=== PATIENT | female | born 1935 | race Hispanic/Latino ===

== ENCOUNTER 2018-08-25 14:20 | Inpatient (IN) | payer OTHER, MEDICARE ==
[~2018-08-25] VITALS: Ht 149.9 cm; Wt 78.0 kg
[~2018-08-25 14:20] MED LIST: ALLO100T PO; AMLO5TAB9 PO; DOCU-132 PO; FERR325T22 PO; FOLI1TAB15 PO; FURO40TA5 PO; GABA-529 PO; HYDR-4154 PO; LEVO88TA7 PO; METO-391 PO; TRAV2.5D OU
[2018-08-25 16:14] LABS: BASOPHILS % (AUTO) 0.7 % (0.0-5.0); EOSINOPHILS % (AUTO) 4.7 % (0.0-8.0); HEMATOCRIT 27.4 % (36-48); LYMPHOCYTES % (AUTO) 8.9 % (21.0-51.0); MEAN CORPUSCULAR HEMOGLOBIN 29.8 pg (27.0-33.0); MEAN CORPUSCULAR HGB CONC 31.5 g/dL (32.0-36.0); MEAN CORPUSCULAR VOLUME 94.4 fL (79-99); MONOCYTES % (AUTO) 6.5 % (3.0-13.0); NEUTROPHILS % (AUTO) 79.2 % (40.0-77.0); NUCLEATED RED BLOOD CELLS 0.2 % (0.0-0.19); PLATELET COUNT (AUTO) 119 K/uL (130-400); RED CELL DISTRIBUTION WIDTH 18.3 % (11.0-15.5); WHITE BLOOD COUNT (AUTO) 5.2 K/uL (4.8-10.8)
[2018-08-25 16:50] LABS: ALBUMIN 2.8 g/dL (3.5-5.0); BILIRUBIN,TOTAL 0.3 mg/dL (0.2-1.0); CREATININE 2.7 mg/dL (0.5-1.5); POTASSIUM 5.4 mmol/L (3.5-5.1); TOTAL PROTEIN, SERUM 6.4 g/dL (6.0-8.3)
[2018-08-25] MEDS ORDERED: CALCIUM GLUCONATE 1 GM/10 ML VIAL IV ONE (17:10)
[2018-08-25] MEDS ORDERED: DEXTROSE 50%-WATER 50 ML DISP.SYRIN IV ONE (17:11)
[2018-08-25 17:12] LABS: APPEARANCE,URINE Cloudy (CLEAR); BILIRUBIN,URINE Negative (NEGATIVE); COLOR,URINE Yellow (YELLOW); GLUCOSE, URINE (UA) Negative (NEGATIVE); KETONES,URINE Negative (NEGATIVE); LEUKOCYTE ESTERASE ,URINE Large (NEGATIVE); NITRATE,URINE Negative (NEGATIVE); OCCULT BLOOD,URINE Nonhemolyzed Trace (NEGATIVE); PROTEIN,URINE POS 1+ (NEGATIVE); UROBILINOGEN,URINE 0.2 mg/dL (0.2-1.0)
[2018-08-25] MEDS ORDERED: INSULIN HUMULIN R 100 UNIT/ML 3ML ONE (17:12)
[2018-08-25] MEDS ORDERED: SODIUM BICARB 50MEQ 50ML VIAL ONE (17:12)
[2018-08-25 17:32] LABS: BACTERIA,URINE Few /HPF (None Seen)
[2018-08-25 17:33] LABS: SQUAMOUS EPITHELIAL CELL,UR 0-2 /HPF (0-2)
[2018-08-25] MEDS ORDERED: MORPHINE SULFATE 2 MG/ML 1ML SYG IV PRN (18:00)
[2018-08-25] MEDS ORDERED: BUMETANIDE 0.25 MG/ML 10 ML VIAL IV SCH (18:00)
[2018-08-25] MEDS ORDERED: ACETAMINOPHEN 325 MG TAB PO PRN (18:00)
[2018-08-25] MEDS ORDERED: ONDANSETRON HCL 4 MG/2 ML VIAL IV PRN (18:00)
[2018-08-25] MEDS ORDERED: LACTULOSE 20 GM/30 ML UDCUP PO PRN (18:00)
[2018-08-25] MEDS ORDERED: RENAL DOSE IV SCH (18:45)
[2018-08-25] MEDS ORDERED: BUMETANIDE 0.25 MG/ML 10 ML 40 ML IV SCH (19:00)
[2018-08-25 21:28] LABS: MAGNESIUM 1.7 mg/dL (1.80-2.40); PHOSPHORUS 3.9 mg/dL (2.5-4.9)
[2018-08-25 21:41] LABS: % IRON SATURATION 16.2 % (22-44)
[2018-08-25 21:42] LABS: HEMOGLOBIN A1C 6.7 % (4.0-6.0)
[2018-08-25 21:50] LABS: CREATINE KINASE, TOTAL 78 U/L (21-232); MYOGLOBIN 226 ng/mL (10-92); TROPONIN I < 0.04 ng/mL (0.00-0.06)
[2018-08-25 22:05] VITALS: BP 158/69
[2018-08-26] VITALS (7 sets, daily range): BP systolic 131–166; BP diastolic 56–75
[2018-08-26 02:17] LABS: HEMATOCRIT 28.1 % (36-48); MEAN CORPUSCULAR HEMOGLOBIN 29.3 pg (27.0-33.0); MEAN CORPUSCULAR HGB CONC 30.9 g/dL (32.0-36.0); MEAN CORPUSCULAR VOLUME 94.9 fL (79-99); NUCLEATED RED BLOOD CELLS 0.3 % (0.0-0.19); PLATELET COUNT (AUTO) 120 K/uL (130-400); RED BLOOD CELL COUNT(AUTO) 2.96 MIL/uL (4.00-5.50); WHITE BLOOD COUNT (AUTO) 4.5 K/uL (4.8-10.8)
[2018-08-26 02:28] LABS: CREATININE 2.5 mg/dL (0.5-1.5); MAGNESIUM 1.7 mg/dL (1.80-2.40); PHOSPHORUS 3.8 mg/dL (2.5-4.9); POTASSIUM 4.6 mmol/L (3.5-5.1)
[2018-08-26 02:39] LABS: CREATINE KINASE, TOTAL 73 U/L (21-232); MYOGLOBIN 227 ng/mL (10-92); TROPONIN I < 0.04 ng/mL (0.00-0.06)
[2018-08-26] MEDS: NITROGLYCERIN 1GM/1 INCH PACKET TD SCH ×3 (03:43→18:17)
[2018-08-26] MEDS: MEROPENEM 500 MG VIAL IVP SCH ×3 (03:44→18:18)
[2018-08-26 09:50] LABS: CREATINE KINASE, TOTAL 64 U/L (21-232); MYOGLOBIN 195 ng/mL (10-92); TROPONIN I < 0.04 ng/mL (0.00-0.06)
[2018-08-26] MEDS: ENOXAPARIN SODIUM 30 MG/0.3 ML SQ SCH (10:03)
[2018-08-26] MEDS: PANTOPRAZOLE SODIUM 40 MG TABLET.DR PO SCH (10:03)
[2018-08-26] MEDS ORDERED: BUMETANIDE 0.25 MG/ML 10 ML 40 ML IV SCH ×2 (17:45)
[2018-08-26] MEDS: HYDRALAZINE HCL 20 MG/ML VIAL IV PRN (18:18)
[2018-08-26] MEDS ORDERED: COMPOUND IV MISC 1 EACH IVSOLN MISC PRN (19:00)
[2018-08-26] MEDS: METOPROLOL TARTRATE 25 MG TAB PO SCH (21:00)
[2018-08-26] MEDS ORDERED: DEXTROSE 50%-WATER 50 ML DISP.SYRIN IV PRN (21:00)
[2018-08-26] MEDS ORDERED: MIDODRINE HCL 5 MG TABLET PO SCH (21:00)
[2018-08-26] MEDS ORDERED: GLUCAGON 1MG KIT 1 MG ML IM PRN (21:00)
[2018-08-26] MEDS: INSULIN HUMULIN R 100 UNIT/ML 3ML SQ SCH (21:08)
[2018-08-26] MEDS ORDERED: ALBUMIN (HUMAN) 25% 50 ML IV SCH (22:00)
[2018-08-27] VITALS (7 sets, daily range): BP systolic 147–187; BP diastolic 58–86
[2018-08-27] MEDS: NITROGLYCERIN 1GM/1 INCH PACKET TD SCH ×3 (02:14→20:19)
[2018-08-27 03:52] LABS: MEAN CORPUSCULAR HEMOGLOBIN 29.4 pg (27.0-33.0); MEAN CORPUSCULAR HGB CONC 31.6 g/dL (32.0-36.0); MEAN CORPUSCULAR VOLUME 93.3 fL (79-99); NUCLEATED RED BLOOD CELLS 0.2 % (0.0-0.19); PLATELET COUNT (AUTO) 132 K/uL (130-400); RED CELL DISTRIBUTION WIDTH 18.1 % (11.0-15.5)
[2018-08-27] MEDS: HYDRALAZINE HCL 20 MG/ML VIAL IV PRN ×2 (04:01→22:10)
[2018-08-27 04:15] LABS: % IRON SATURATION 16.8 % (22-44)
[2018-08-27 04:22] LABS: CREATININE 2.2 mg/dL (0.5-1.5); MAGNESIUM 1.5 mg/dL (1.80-2.40); PHOSPHORUS 2.6 mg/dL (2.5-4.9); POTASSIUM 4.2 mmol/L (3.5-5.1); THYROID STIMULATING HORMONE 3.19 uIU/mL (0.36-3.74)
[2018-08-27 04:50] LABS: INR 1.06 (0.85-1.15); PARTIAL THROMBOPLASTIN TIME 25.8 SEC (26.3-35.5); PROTHROMBIN TIME 11.1 SEC (9.6-11.6)
[2018-08-27] MEDS: MEROPENEM 500 MG VIAL IVP SCH (06:13)
[2018-08-27] MEDS: INSULIN HUMULIN R 100 UNIT/ML 3ML SQ SCH ×2 (06:13→21:41)
[2018-08-27] MEDS: METOPROLOL TARTRATE 25 MG TAB PO SCH ×2 (09:04→20:18)
[2018-08-27] MEDS: ACETAMINOPHEN 325 MG TAB PO PRN (09:04)
[2018-08-27] MEDS: ENOXAPARIN SODIUM 30 MG/0.3 ML SQ SCH (09:05)
[2018-08-27] MEDS: PANTOPRAZOLE SODIUM 40 MG TABLET.DR PO SCH (09:05)
[2018-08-27] MEDS: FOLIC ACID/VITAMIN B COMP W-C 1 MG CAPSULE PO SCH (09:05)
[2018-08-27] MEDS: BUMETANIDE 1 MG TAB PO SCH (20:18)
[2018-08-28 03:42] VITALS: BP 165/77
[2018-08-28 04:33] LABS: HEMATOCRIT 28.4 % (36-48); MEAN CORPUSCULAR HGB CONC 32.2 g/dL (32.0-36.0); NUCLEATED RED BLOOD CELLS 0.2 % (0.0-0.19); PLATELET COUNT (AUTO) 140 K/uL (130-400); RED BLOOD CELL COUNT(AUTO) 3.06 MIL/uL (4.00-5.50); RED CELL DISTRIBUTION WIDTH 18.1 % (11.0-15.5); WHITE BLOOD COUNT (AUTO) 5.2 K/uL (4.8-10.8)
[2018-08-28 04:50] LABS: CREATININE 2.2 mg/dL (0.5-1.5); MAGNESIUM 1.3 mg/dL (1.80-2.40); POTASSIUM 4.1 mmol/L (3.5-5.1)
[2018-08-28 04:57] LABS: BAND NEUTROPHILS % (MANUAL) 2 % (0-2); BASOPHILS % (MANUAL) 1 % (0-2); LYMPHOCYTES % (MANUAL) 9 % (22-44); MAN.DIFF COMMENT-IMPRESSION MANUAL DIFFERENTIAL; MONOCYTES % (MANUAL) 6 % (2-9); SEGMENTED NEUTROPHILS % 82 % (40-70)
[2018-08-28 04:59] LABS: PLATELET MORPHOLOGY COMMENT DECREASED
[2018-08-28] MEDS ORDERED: MAGNESIUM 2GM PREMIX 50ML 50 ML IV ONE (06:08)
[2018-08-28] MEDS ORDERED: MAGNESIUM 2GM PREMIX 50ML 50 ML IV PRN ×2 (06:15→14:00)
[2018-08-28] MEDS: HYDRALAZINE HCL 20 MG/ML VIAL IV PRN ×2 (06:31→20:59)
[2018-08-28] MEDS: NITROGLYCERIN 1GM/1 INCH PACKET TD SCH ×3 (06:31→20:59)
[2018-08-28] MEDS: INSULIN HUMULIN R 100 UNIT/ML 3ML SQ SCH ×4 (06:32→21:00)
[2018-08-28 07:00] VITALS: BP 134/58
[2018-08-28] MEDS: BUMETANIDE 1 MG TAB PO SCH ×2 (10:07→20:58)
[2018-08-28] MEDS: PANTOPRAZOLE SODIUM 40 MG TABLET.DR PO SCH (10:08)
[2018-08-28] MEDS: METOPROLOL TARTRATE 25 MG TAB PO SCH ×2 (10:08→20:58)
[2018-08-28] MEDS: FOLIC ACID/VITAMIN B COMP W-C 1 MG CAPSULE PO SCH (10:08)
[2018-08-28] MEDS: ACETAMINOPHEN 325 MG TAB PO PRN (10:09)
[2018-08-28] MEDS: ENOXAPARIN SODIUM 30 MG/0.3 ML SQ SCH (10:10)
[2018-08-28 11:00] VITALS: BP 164/65
[2018-08-28] MEDS ORDERED: FERS325 PO (14:48)
[2018-08-28] MEDS ORDERED: ROSU10TA27 PO (14:48)
[2018-08-28] MEDS ORDERED: TRAV5DRO OU (14:48)
[2018-08-28] MEDS ORDERED: RANI150C4 PO (14:48)
[2018-08-28 16:00] VITALS: BP 174/65
[2018-08-28 19:48] VITALS: BP 177/74
[2018-08-28 23:33] VITALS: BP 149/56
[2018-08-29] VITALS (7 sets, daily range): BP systolic 138–167; BP diastolic 44–62
[2018-08-29] MEDS: HYDRALAZINE HCL 20 MG/ML VIAL IV PRN (03:49)
[2018-08-29 04:34] LABS: CREATININE 2.1 mg/dL (0.5-1.5); MAGNESIUM 1.6 mg/dL (1.80-2.40)
[2018-08-29] MEDS: NITROGLYCERIN 1GM/1 INCH PACKET TD SCH ×3 (04:47→21:05)
[2018-08-29] MEDS: INSULIN HUMULIN R 100 UNIT/ML 3ML SQ SCH ×4 (06:33→21:01)
[2018-08-29] MEDS: BUMETANIDE 1 MG TAB PO SCH ×2 (08:34→21:04)
[2018-08-29] MEDS: METOPROLOL TARTRATE 25 MG TAB PO SCH ×2 (08:34→21:04)
[2018-08-29] MEDS: FOLIC ACID/VITAMIN B COMP W-C 1 MG CAPSULE PO SCH (08:34)
[2018-08-29] MEDS: PANTOPRAZOLE SODIUM 40 MG TABLET.DR PO SCH (08:34)
[2018-08-29] MEDS: ENOXAPARIN SODIUM 30 MG/0.3 ML SQ SCH (12:14)
[2018-08-29] MEDS: BACITRACIN 28.4 GM OINT TP SCH (21:06)
[2018-08-30 03:26] VITALS: BP 168/61
[2018-08-30 03:50] LABS: HEMATOCRIT 27.5 % (36-48); MEAN CORPUSCULAR HEMOGLOBIN 29.9 pg (27.0-33.0); MEAN CORPUSCULAR HGB CONC 32.5 g/dL (32.0-36.0); NUCLEATED RED BLOOD CELLS 0.1 % (0.0-0.19); PLATELET COUNT (AUTO) 129 K/uL (130-400); RED BLOOD CELL COUNT(AUTO) 2.99 MIL/uL (4.00-5.50); RED CELL DISTRIBUTION WIDTH 18.4 % (11.0-15.5); WHITE BLOOD COUNT (AUTO) 6.2 K/uL (4.8-10.8)
[2018-08-30 03:59] LABS: CREATININE 2.1 mg/dL (0.5-1.5); POTASSIUM 3.9 mmol/L (3.5-5.1)
[2018-08-30 04:04] LABS: B-TYPE NATRIURETIC PEPTIDE 1370 pg/mL (0-100)
[2018-08-30] MEDS: NITROGLYCERIN 1GM/1 INCH PACKET TD SCH ×2 (05:55→13:20)
[2018-08-30] MEDS: INSULIN HUMULIN R 100 UNIT/ML 3ML SQ SCH ×3 (07:15→16:30)
[2018-08-30 07:45] VITALS: BP 162/51
[2018-08-30] MEDS: METOPROLOL TARTRATE 25 MG TAB PO SCH (10:14)
[2018-08-30] MEDS: FOLIC ACID/VITAMIN B COMP W-C 1 MG CAPSULE PO SCH (10:14)
[2018-08-30] MEDS: BUMETANIDE 1 MG TAB PO SCH (10:14)
[2018-08-30] MEDS: PANTOPRAZOLE SODIUM 40 MG TABLET.DR PO SCH (10:14)
[2018-08-30] MEDS: BACITRACIN 28.4 GM OINT TP SCH (10:15)
[2018-08-30] MEDS: ENOXAPARIN SODIUM 30 MG/0.3 ML SQ SCH (10:15)
[2018-08-30 11:49] VITALS: BP 161/72
[2018-08-30] MEDS ORDERED: PANT40TA PO (14:50)
[2018-08-30] MEDS ORDERED: BACI30OI6 TP (14:50)
[2018-08-30] MEDS ORDERED: BUME1TAB12 PO (14:50)
[2018-08-30 17:45] VITALS: BP 161/78
== END 2018-08-30 18:30 | disposition hospice, inpatient (51) | DRG 682 ==
LOC: EDH 14:20 → EDHIP 17:57 → 2AH 21:48
PROVIDERS: ADMIT Internal Medicine; ATTEND Internal Medicine
DX: N17.9 Acute kidney failure, unspecified (principal); I50.33 Acute on chronic diastolic (congestive) heart failure; I13.0 Hypertensive heart and chronic kidney disease with heart failure and stage 1 through stage 4 chronic kidney disease, or unspecified chronic kidney disease; N39.0 Urinary tract infection, site not specified; N18.4 Chronic kidney disease, stage 4 (severe); E11.22 Type 2 diabetes mellitus with diabetic chronic kidney disease; R09.89 Other specified symptoms and signs involving the circulatory and respiratory systems; D50.9 Iron deficiency anemia, unspecified; D63.1 Anemia in chronic kidney disease; E11.21 Type 2 diabetes mellitus with diabetic nephropathy; E66.9 Obesity, unspecified; E87.5 Hyperkalemia; I05.0 Rheumatic mitral stenosis; I25.10 Atherosclerotic heart disease of native coronary artery without angina pectoris; I27.20 Pulmonary hypertension, unspecified; R62.7 Adult failure to thrive; R53.81 Other malaise; Z51.5 Encounter for palliative care; Z68.34 Body mass index [BMI] 34.0-34.9, adult; Z88.8 Allergy status to other drugs, medicaments and biological substances; Z90.710 Acquired absence of both cervix and uterus; Z91.15 Patient's noncompliance with renal dialysis; Z82.5 Family history of asthma and other chronic lower respiratory diseases; Z82.49 Family history of ischemic heart disease and other diseases of the circulatory system; Z82.0 Family history of epilepsy and other diseases of the nervous system
CPT/HCPCS: 36415; 71045; 80048; 80053; 80339; 81001; 82550; 82728; 82948; 83036; 83540; 83550; 83735; 83874; 83880; 84100; 84443; 84484; 85025; 85027; 85610; 85730; 93005; 99291; A4218; G0378; J0360; J0610; J1650; J1815; J2185; J3475; J3490; J7070; P9047

== ENCOUNTER 2018-09-15 10:19 | Inpatient (IN) | payer MEDICARE ==
[~2018-09-15] VITALS: Ht 157.5 cm; Wt 80.0 kg
[~2018-09-15 10:19] MED LIST changes: -ALLO100T PO; -AMLO5TAB9 PO; +BACI30OI6 TP; +BUME1TAB12 PO; -FERR325T22 PO; -FOLI1TAB15 PO; -FURO40TA5 PO; -HYDR-4154 PO; -METO-391 PO; +PANT40TA PO; -TRAV2.5D OU; +TRAV5DRO OU
[2018-09-15 10:37] LABS: EOSINOPHILS % (AUTO) 0.6 % (0.0-8.0); HEMATOCRIT 27.7 % (36-48); MEAN CORPUSCULAR HEMOGLOBIN 29.5 pg (27.0-33.0); MEAN CORPUSCULAR HGB CONC 32.5 g/dL (32.0-36.0); MEAN CORPUSCULAR VOLUME 90.8 fL (79-99); NEUTROPHILS % (AUTO) 79.4 % (40.0-77.0); NUCLEATED RED BLOOD CELLS 0.1 % (0.0-0.19); PLATELET COUNT (AUTO) 112 K/uL (130-400); RED BLOOD CELL COUNT(AUTO) 3.05 MIL/uL (4.00-5.50); RED CELL DISTRIBUTION WIDTH 16.7 % (11.0-15.5); WHITE BLOOD COUNT (AUTO) 8.2 K/uL (4.8-10.8)
[2018-09-15 10:52] LABS: INR 1.08 (0.85-1.15); PARTIAL THROMBOPLASTIN TIME 25.9 SEC (26.3-35.5); PROTHROMBIN TIME 11.3 SEC (9.6-11.6)
[2018-09-15 11:05] LABS: ALBUMIN 2.6 g/dL (3.5-5.0); BILIRUBIN,TOTAL 0.3 mg/dL (0.2-1.0); CREATININE 3.2 mg/dL (0.5-1.5); TOTAL PROTEIN, SERUM 6.5 g/dL (6.0-8.3); TROPONIN I 0.54 ng/mL (0.00-0.06)
[2018-09-15 11:06] LABS: APPEARANCE,URINE TURBID (CLEAR); BILIRUBIN,URINE SMALL (NEGATIVE); COLOR,URINE YELLOW (YELLOW); GLUCOSE, URINE (UA) NEGATIVE (NEGATIVE); KETONES,URINE NEGATIVE (NEGATIVE); LEUKOCYTE ESTERASE ,URINE MODERATE (NEGATIVE); NITRATE,URINE NEGATIVE (NEGATIVE); OCCULT BLOOD,URINE LARGE (NEGATIVE); PROTEIN,URINE >=300 (NEGATIVE)
[2018-09-15] MEDS ORDERED: SODIUM CHLORIDE 0.9% 1000ML 1,000 ML IV ONE (11:19)
[2018-09-15] MEDS ORDERED: ZOSYN 3.375GM+NS 50ML 50 ML IV ONE (11:20)
[2018-09-15] MEDS ORDERED: ACETAMINOPHEN EXTRA STRENGTH 500 MG TABLET ONE (11:20)
[2018-09-15] MEDS ORDERED: SODIUM CHLORIDE 0.9% 50 ML IV ONE (11:21)
[2018-09-15 11:35] LABS: BACTERIA,URINE Many /HPF (None Seen); MUCUS,URINE Many LPF (None Seen); SQUAMOUS EPITHELIAL CELL,UR Rare /HPF (0-2); WBC,URINE TNTC /HPF (0-1)
[2018-09-15 11:36] LABS: TRANSITIONAL EPI CELLS,URINE Few /HPF (None Seen)
[2018-09-15] MEDS ORDERED: ACETAMINOPHEN 650 MG SUPPOSITORY RC ONE (12:04)
[2018-09-15] MEDS ORDERED: SODIUM CHLORIDE 0.9% 100 ML IV ONE (12:21)
[2018-09-15] MEDS ORDERED: AMIODARONE HCL 50 MG/ML 3 ML VIAL ONE (12:21)
[2018-09-15] MEDS ORDERED: AMIODARONE HCL 150 MG in DEXTROSE 5%-WATER 100 ML IV SCH (12:25)
[2018-09-15] MEDS ORDERED: AMIODARONE HCL 900 MG in DEXTROSE 5%-WATER 500 ML IV SCH (12:30)
[2018-09-15] MEDS ORDERED: ACETAMINOPHEN 325 MG TAB PO PRN (15:00)
[2018-09-15] MEDS ORDERED: MORPHINE SULFATE 2 MG/ML 1ML SYG IV PRN (15:00)
[2018-09-15] MEDS ORDERED: BUMETANIDE 0.25 MG/ML 10 ML VIAL IV SCH (15:00)
[2018-09-15] MEDS ORDERED: HYDRALAZINE HCL 20 MG/ML VIAL IV PRN (15:00)
[2018-09-15] MEDS ORDERED: ASPIRIN 300 MG SUPPOSITORY PR ONE (15:22)
[2018-09-15 15:26] LABS: ABG BASE EXCESS 0.4 mmol/L (-2.0-3.0); ABG HCO3 27.4 mmol/L (21.0-28.0); ABG OXYGEN SATURATION 77.2 % (95.0-99.0); ABG PCO2 53 mmHg (32-45)
[2018-09-15] MEDS ORDERED: BUMETANIDE 0.25 MG/ML ONE (16:49)
[2018-09-15] MEDS: LINEZOLID 600 MG/ISO-OSM 300 ML IV SCH (16:55)
[2018-09-15] MEDS ORDERED: BUMETANIDE IV SCH (16:58)
[2018-09-15] MEDS ORDERED: SODIUM CHLORIDE 0.9% IV SCH (16:58)
[2018-09-15] MEDS ORDERED: COMPOUND IV MISC 1 EACH IVSOLN MISC PRN (17:00)
--- NOTE | 2018-09-15 17:02 | NUR ---
FLAVIO PERDUE WAS INFORMED TO BRING HOME MEDICATIONS.
[2018-09-15] MEDS: ZOSYN 3.375GM+NS 50ML 50 ML IV SCH (21:00)
[2018-09-15] MEDS: FAMOTIDINE/PF 20 MG/2 ML VIAL IV SCH (21:00)
[2018-09-16] MEDS ORDERED: ZOSYN 3.375GM+NS 50ML 50 ML IV ONE ×2 (00:39→07:17)
[2018-09-16] MEDS ORDERED: SODIUM CHLORIDE 0.9% 50 ML IV ONE ×3 (00:40→07:19)
[2018-09-16] MEDS: LINEZOLID 600 MG/ISO-OSM 300 ML IV SCH ×2 (04:55→16:28)
[2018-09-16] MEDS: ZOSYN 3.375GM+NS 50ML 50 ML IV SCH ×3 (05:00→21:13)
[2018-09-16] MEDS: ENOXAPARIN SODIUM 30 MG/0.3 ML SQ SCH (09:00)
[2018-09-16] MEDS ORDERED: FAMOTIDINE/PF 20 MG/2 ML VIAL IV ONE (10:24)
[2018-09-16] MEDS ORDERED: ENOXAPARIN SODIUM 30 MG/0.3 ML SQ ONE (10:24)
[2018-09-16 14:35] VITALS: BP 92/66
--- NOTE | 2018-09-16 17:18 | NUR ---
TELE UPDATE: AFIB 120'S
[2018-09-16] MEDS ORDERED: LACT10SO9 PO (18:51)
[2018-09-16] MEDS ORDERED: ACET650S14 RC (18:51)
[2018-09-16] MEDS ORDERED: MORP20SY PO (18:51)
[2018-09-16] MEDS ORDERED: MORP20SY SL (18:51)
[2018-09-16] MEDS ORDERED: ALBU2.5V2 IH (18:51)
[2018-09-16] MEDS ORDERED: LORA2ORA5 SL (18:51)
[2018-09-16] MEDS ORDERED: FOLI0.8T22 PO (18:51)
[2018-09-16] MEDS ORDERED: METO25TA6 PO (18:51)
--- NOTE | 2018-09-16 19:30 | NUR ---
AFIB RVR PT COMPLETED AMIODARONE DRIP PER PROTOCOL. CONTINUES AFIB RVR 128. DR. PATEL NOTIFIED. INSTRUCTED TO CONSULT CARDIOLOGY FOR RECOMMENDATIONS. DR. Rayshawn PRICE MD NOTIFIED OF PT CONDITION. CARDIZEM DRIP INITIATED PER PROTOCOL. PT REMAINS ASYMPTOMATIC WITH BP-111/87; AFIB-128.
[2018-09-16 20:06] VITALS: BP 111/87
[2018-09-16] MEDS ORDERED: DILTIAZEM 125MG+100 ML NS 125 ML IV SCH (21:00)
[2018-09-16] MEDS: FAMOTIDINE/PF 20 MG/2 ML VIAL IV SCH (21:13)
[2018-09-16] MEDS ORDERED: DILTIAZEM HCL 5 MG/ML 10 ML VIAL IV ONE (21:45)
[2018-09-17 00:50] VITALS: BP 135/98
[2018-09-17 04:02] VITALS: BP 141/70
[2018-09-17] MEDS: ZOSYN 3.375GM+NS 50ML 50 ML IV SCH ×3 (05:23→22:13)
[2018-09-17 07:15] VITALS: BP 133/111
[2018-09-17 07:49] LABS: BASOPHILS % (AUTO) 0.4 % (0.0-5.0); EOSINOPHILS % (AUTO) 1.8 % (0.0-8.0); HEMATOCRIT 28.6 % (36-48); LYMPHOCYTES % (AUTO) 6.3 % (21.0-51.0); MEAN CORPUSCULAR HEMOGLOBIN 28.9 pg (27.0-33.0); MEAN CORPUSCULAR HGB CONC 31.9 g/dL (32.0-36.0); MEAN CORPUSCULAR VOLUME 90.6 fL (79-99); MONOCYTES % (AUTO) 6.1 % (3.0-13.0); NEUTROPHILS % (AUTO) 85.4 % (40.0-77.0); NUCLEATED RED BLOOD CELLS 0.1 % (0.0-0.19); PLATELET COUNT (AUTO) 128 K/uL (130-400); RED BLOOD CELL COUNT(AUTO) 3.15 MIL/uL (4.00-5.50); RED CELL DISTRIBUTION WIDTH 16.5 % (11.0-15.5); WHITE BLOOD COUNT (AUTO) 8.3 K/uL (4.8-10.8)
--- NOTE | 2018-09-17 07:58 | NUR ---
NO RESUSCITATIVE MEASURE REQUEST FORM IN CHART. ASKED PATIENT ABOUT CODE STATUS AND SHE SAID THAT SHE DOES NOT WANT TO BE DNR. INFORMED LUIS M MONTALVO TRACK OILER. ORDER FOR DNR DISCONTINUED PER PATIENT'S REQUEST.
[2018-09-17] MEDS: ENOXAPARIN SODIUM 30 MG/0.3 ML SQ SCH (08:56)
[2018-09-17] MEDS: LINEZOLID 600 MG/ISO-OSM 300 ML IV SCH ×2 (09:12→16:39)
--- NOTE | 2018-09-17 11:03 | NUR ---
PATIENT CONVERTED TO SINUS RHYTHM REPORTED BY ANABELLE SIDDIQUI
[2018-09-17 11:22] VITALS: BP 131/88
[2018-09-17] MEDS: ACETAMINOPHEN 325 MG TAB PO PRN (11:31)
--- NOTE | 2018-09-17 12:14 | NUR ---
cm note met with patients 3 daughters present, per daughter daniel munoz, state pt came from [facility] and was under [facility] at facility, per daughters present, state they wish for pt to return back to [facility], but do not wish to continue with [facility]. state all daughters are in agreement, choice letter and PIA signed. and states that they wish to [place] back [facility] [place]. call made to [facility] with [facility] and informed of family request to stop hospice. states this pt will need to be referred to [facility] for formal denial before accepting as a medicaid pending. will followup. Addendum: 09/17/18 at 1220 by LEVI DAVILA Amended: Links added.
[2018-09-17 15:46] VITALS: BP 151/50
[2018-09-17] MEDS: INSULIN HUMULIN R 100 UNIT/ML 3ML SQ SCH ×2 (16:35→22:22)
[2018-09-17 19:52] VITALS: BP 145/40
[2018-09-17] MEDS: FAMOTIDINE/PF 20 MG/2 ML VIAL IV SCH (22:17)
[2018-09-18] VITALS (9 sets, daily range): BP systolic 115–199; BP diastolic 35–96
[2018-09-18] MEDS: LINEZOLID 600 MG/ISO-OSM 300 ML IV SCH ×3 (04:17→20:35)
[2018-09-18 05:10] LABS: BASOPHILS % (AUTO) 0.7 % (0.0-5.0); HEMATOCRIT 26.1 % (36-48); LYMPHOCYTES % (AUTO) 8.4 % (21.0-51.0); MEAN CORPUSCULAR HEMOGLOBIN 29.1 pg (27.0-33.0); MEAN CORPUSCULAR HGB CONC 32.3 g/dL (32.0-36.0); MEAN CORPUSCULAR VOLUME 90.1 fL (79-99); MONOCYTES % (AUTO) 7.7 % (3.0-13.0); NEUTROPHILS % (AUTO) 79.2 % (40.0-77.0); NUCLEATED RED BLOOD CELLS 0.3 % (0.0-0.19); PLATELET COUNT (AUTO) 139 K/uL (130-400); RED CELL DISTRIBUTION WIDTH 16.6 % (11.0-15.5); WHITE BLOOD COUNT (AUTO) 7.5 K/uL (4.8-10.8)
[2018-09-18 05:27] LABS: CREATININE 3.8 mg/dL (0.5-1.5); POTASSIUM 3.7 mmol/L (3.5-5.1)
[2018-09-18] MEDS: ZOSYN 3.375GM+NS 50ML 50 ML IV SCH ×3 (05:29→22:38)
[2018-09-18] MEDS: INSULIN HUMULIN R 100 UNIT/ML 3ML SQ SCH ×4 (06:07→20:41)
--- NOTE | 2018-09-18 08:00 | NUR ---
AM ASSESSMENT PT LAYING IN BED, HOB ELEVATED 30 DEGREES, RESTING. FAMILY @ BESIDE. PT SPA SPEAKING ONLY. SOB ON EXERTION, UNABLE TO LIE FLAT. NO DISTRESS NOTED. O2 NC @ 2L. DENIES CHEST PAIN OR DISCOMFORT. DENIES PALPITATIONS. TELE: SR 60s. DENIES N/V AND/ OR DIARRHEA. 16 FR TANNER CATH PATENT & DRAINING. BUMEX GTT INFUSING @ 1 MG/HR. BEDBOUND. INSTRUCTED TO CALL FOR ASSISTANCE. CALL DESTINY W/IN REACH.
[2018-09-18] MEDS: ENOXAPARIN SODIUM 30 MG/0.3 ML SQ SCH (08:56)
[2018-09-18] MEDS: ACETAMINOPHEN 325 MG TAB PO PRN (11:23)
[2018-09-18] MEDS: DILTIAZEM HCL 60 MG TABLET PO SCH ×2 (17:07→23:00)
[2018-09-18] MEDS: FAMOTIDINE/PF 20 MG/2 ML VIAL IV SCH (20:35)
[2018-09-18] MEDS: ONDANSETRON HCL 4 MG/2 ML VIAL IV PRN (23:03)
[2018-09-19] VITALS (7 sets, daily range): BP systolic 140–162; BP diastolic 52–65
[2018-09-19 03:35] LABS: ALBUMIN 2.3 g/dL (3.5-5.0); BILIRUBIN,TOTAL 0.3 mg/dL (0.2-1.0); CREATININE 3.8 mg/dL (0.5-1.5); POTASSIUM 3.5 mmol/L (3.5-5.1); TOTAL PROTEIN, SERUM 6.1 g/dL (6.0-8.3)
[2018-09-19] MEDS: ZOSYN 3.375GM+NS 50ML 50 ML IV SCH (05:01)
[2018-09-19] MEDS: DILTIAZEM HCL 60 MG TABLET PO SCH (05:02)
[2018-09-19] MEDS: INSULIN HUMULIN R 100 UNIT/ML 3ML SQ SCH ×4 (06:06→20:58)
[2018-09-19] MEDS: ACETAMINOPHEN 325 MG TAB PO PRN (06:45)
[2018-09-19] MEDS ORDERED: LEVOFLOXACIN 500 MG/D5W 100 ML 100 ML IV SCH (08:15)
[2018-09-19] MEDS ORDERED: RENAL DOSE IV SCH (08:15)
[2018-09-19] MEDS: ENOXAPARIN SODIUM 30 MG/0.3 ML SQ SCH (08:23)
--- NOTE | 2018-09-19 08:30 | NUR ---
AM ASSESSMENT PT IN BED. O2 NC @ 2L. SOB ON EXERTION. NO DISTRESS NOTED. DENIES CHEST PAIN OR DISCOMFORT. TELE: SR 60s. DENIES N/V AND/OR DIARRHEA. 16 FR FLORES COATES PATENT & DRAINING. BUMEX GTT INFUSING @ 1MG/HR. INSTRUCTED TO CALL FOR ASSISTANCE. CALL DESTINY W/IN REACH.
[2018-09-19] MEDS: LINEZOLID 600 MG/ISO-OSM 300 ML IV SCH ×2 (09:00→20:33)
[2018-09-19] MEDS ORDERED: LEVOFLOXACIN 250 MG/D5W 50ML 50 ML IVPB SCH (11:00)
[2018-09-19] MEDS: DILTIAZEM HCL 180 MG CAP.SR.24H PO SCH (11:17)
[2018-09-19] MEDS: ONDANSETRON HCL 4 MG/2 ML VIAL IV PRN (12:16)
--- NOTE | 2018-09-19 12:24 | NUR ---
MEDICATED WITH ZOFRAN 4 MG IV FOR C/O NAUSEA. ORDERED DIET SPRITE UPON REQUEST.
--- NOTE | 2018-09-19 15:00 | NUR ---
cm note call made to gauri with [facility]- and informed that as per THShelly anthony. pt should be under traditional medicare at [facility]. states she will verify coverage and let cm know outcome. informed dc plan is back to [facility]. per daughters didnot wish any more Hospice.
[2018-09-19] MEDS: FAMOTIDINE/PF 20 MG/2 ML VIAL IV SCH (20:33)
[2018-09-20 03:58] VITALS: BP 155/59
[2018-09-20 04:02] LABS: HEMATOCRIT 25.8 % (36-48); MEAN CORPUSCULAR HEMOGLOBIN 29.2 pg (27.0-33.0); MEAN CORPUSCULAR HGB CONC 32.7 g/dL (32.0-36.0); MEAN CORPUSCULAR VOLUME 89.3 fL (79-99); NUCLEATED RED BLOOD CELLS 0.1 % (0.0-0.19); PLATELET COUNT (AUTO) 130 K/uL (130-400); RED BLOOD CELL COUNT(AUTO) 2.89 MIL/uL (4.00-5.50); RED CELL DISTRIBUTION WIDTH 16.5 % (11.0-15.5)
[2018-09-20 04:15] LABS: CREATININE 4.1 mg/dL (0.5-1.5); MAGNESIUM 1.1 mg/dL (1.80-2.40); PHOSPHORUS 4.4 mg/dL (2.5-4.9); POTASSIUM 3.4 mmol/L (3.5-5.1)
[2018-09-20] MEDS: INSULIN HUMULIN R 100 UNIT/ML 3ML SQ SCH ×3 (05:40→15:52)
[2018-09-20 07:34] VITALS: BP 147/53
--- NOTE | 2018-09-20 07:36 | NUR ---
Bedside report given to incoming NOD using SBAR all questions answered.Pt. still with ongoing Bumex drip.
--- NOTE | 2018-09-20 07:40 | NUR ---
ENCOUNTERED PATIENT ON BED WITH NO C/O PAIN NOR SHORTNESS OF BREATH. SHE VOICED THAT HER LAST EPISODE OF CHEST TIGHTNESS WAS LAST NIGHT. BUMEX DRIP IS INFUSING VIA PUMP AT 1MG/HR. FULL ASSESSMENT DONE. DAUGHTER AT BEDSIDE. CALL LIGHT IS WITHIN REACH. INSTRUCTED TO CALL FOR ASSISTANCE AND SHE VERBALIZED UNDERSTANDING. BED AT LOWEST POSITION. TANNER CATHETER DRAINING BY GRAVITY. BAG IS OFF FLOOR AND BELOW BLADDER.
[2018-09-20] MEDS ORDERED: MAGNESIUM 2GM PREMIX 50ML 50 ML IV SCH (08:15)
[2018-09-20] MEDS: ENOXAPARIN SODIUM 30 MG/0.3 ML SQ SCH (08:24)
[2018-09-20] MEDS: LINEZOLID 600 MG/ISO-OSM 300 ML IV SCH (08:24)
[2018-09-20] MEDS: DILTIAZEM HCL 180 MG CAP.SR.24H PO SCH (08:26)
[2018-09-20 11:27] VITALS: BP 157/65
--- NOTE | 2018-09-20 12:31 | NUR ---
DCP- [facility] without Hospice MARIA LUISA met with pt and daughter /RYAN Bello to discuss discharge. Daughter states Dr Feldman told pt that if she went to [facility] with [facility]. he could round on pt there on his lunch hour. So pt wants to go with this plan. Maria Luisa informed pt and family that [facility] has not beds, and that pt has not been at [facility] 31 days, which is needed to qualify pt for [place] Medicaid. Therefore is she wants to change [facility], pt and family would be responsible for bill at [facility]. Family insisting that pt has met 31 days. Maria Luisa called [facility] and verified that pt has only been at [facility] 25 days and must complete 31 days needed. Pt is agreeable to returning to [facility] but wants Dr Feldman to round on her like he said he would. Explained that Dr Feldman does not round at [facility], and [facility] is not an option. Pt states she and family can not afford to pay out of pocket. Discussed hospice. Eugenia states that her sisters are understanding hospice and sister was the one that revoked it from [place]. Family then complaining that [place] nurse did not round on pt as schedule, that her diabetic meds were stopped and [facility] told them they did not have orders for diabetic checks or meds. I talked to pt and family again, re enforcing again what Dr flores, Dr Feldman, hospice nurses have all told them about services and it does not seem that all family is in agreement with taking this step. I encouraged family to talk and decide what they wanted and if they decide on hospice this can be arranged at [place] -but for now pt can return to [facility] and complete her 31 days. pt states she wants to return to [facility] without hospice. [place] nurse informed and Dr Feldman also informed Sw faxed pt info to [facility] at [phone]
[2018-09-20 15:18] VITALS: BP 150/68
--- NOTE | 2018-09-20 16:08 | NUR ---
MT REPORTS PATIENT HAS BEEN BRADYCARDIC ON THE 50'S IN THE PAST 40 MINUTES. PATIENT'S HEART RATE AT THIS MOMENT NOW DROPPED TO THE 40'S. INFORMED DR. PATEL.
[2018-09-20 16:34] LABS: MAGNESIUM 1.6 mg/dL (1.80-2.40); POTASSIUM 3.1 mmol/L (3.5-5.1)
[2018-09-20] MEDS ORDERED: POTASSIUM CHLORIDE 10% ELIXIR 20 MEQ/15 ML UDCUP ONE (16:47)
[2018-09-20] MEDS ORDERED: POTASSIUM CHLORIDE 10% ELIXIR 20 MEQ/15 ML UDCUP PO ONE (17:02)
--- NOTE | 2018-09-20 17:10 | NUR ---
SBAR REPORT HANDED TO NATE MATTHEWS RN OF [facility]. ALL QUESTIONS ANSWERED.
--- NOTE | 2018-09-20 17:12 | NUR ---
[facility] CALLED. NO ETA GIVEN. PATIENT WILL NEED O2.
--- NOTE | 2018-09-20 19:20 | NUR ---
Received report pt. is discharged pending transport ,awaiting for EMS.Pt. remained stable,alert and appears calm.
[2018-09-20 19:32] VITALS: BP 168/64
--- NOTE | 2018-09-20 21:05 | NUR ---
EMS here to transport pt. paper works handed over and report given to EMS staff,all questions answered.Pt. remained stable, family to bedside.
== END 2018-09-20 21:36 | DRG 871 ==
LOC: EDH 10:19 → INTOOBSV 14:53 → EDHIP 14:53 → OBSVTOIN 14:53 → 2AH 09-16 13:41
PROVIDERS: ADMIT Internal Medicine; ATTEND Internal Medicine
DX: A41.9 Sepsis, unspecified organism (principal); I50.33 Acute on chronic diastolic (congestive) heart failure; I13.2 Hypertensive heart and chronic kidney disease with heart failure and with stage 5 chronic kidney disease, or end stage renal disease; N18.5 Chronic kidney disease, stage 5; N39.0 Urinary tract infection, site not specified; D50.9 Iron deficiency anemia, unspecified; E11.22 Type 2 diabetes mellitus with diabetic chronic kidney disease; I27.20 Pulmonary hypertension, unspecified; B96.1 Klebsiella pneumoniae [K. pneumoniae] as the cause of diseases classified elsewhere; I48.0 Paroxysmal atrial fibrillation; R54 Age-related physical debility; E66.9 Obesity, unspecified; I05.2 Rheumatic mitral stenosis with insufficiency; E78.5 Hyperlipidemia, unspecified; Z68.32 Body mass index [BMI] 32.0-32.9, adult; Z95.2 Presence of prosthetic heart valve; Z90.710 Acquired absence of both cervix and uterus; Z82.49 Family history of ischemic heart disease and other diseases of the circulatory system; Z83.6 Family history of other diseases of the respiratory system; Z82.0 Family history of epilepsy and other diseases of the nervous system; Z90.49 Acquired absence of other specified parts of digestive tract
CPT/HCPCS: 36415; 36600; 71045; 80048; 80053; 81001; 82550; 82803; 82948; 83605; 83735; 83874; 83880; 84100; 84132; 84484; 85025; 85027; 85610; 85730; 87040; 87077; 87088; 87186; 87804; 93005; 94660; 97039; 99291; G0378; J0282; J0360; J1650; J1815; J1956; J2020; J2405; J2543; J3475; J3490; J7030; J7060